=== PATIENT | male | born 1985 | race Caucasian/White ===

== ENCOUNTER 2024-11-06 14:57 | Emergency (ER) | payer MEDICAID ==
[~2024-11-06] VITALS: Ht 165.1 cm; Wt 82.0 kg
[2024-11-06 15:10] VITALS: BP 108/61; TEMP 98.4; O2SAT 100
[2024-11-06 15:15] VITALS: PULSE 82; RESP 18; O2SAT 99
[2024-11-06] MEDS ORDERED: IBUP-2029 MT (18:07)
[2024-11-06] MEDS: IBUPROFEN 800MG TABLET PO ONE (18:29)
== END 2024-11-06 18:33 | disposition home or self-care (01) ==
LOC: ER 14:57
DX: M54.50 Low back pain, unspecified (principal)
CPT/HCPCS: 99282